=== PATIENT | female | born 1970 | race African-American/Black ===

== ENCOUNTER 2017-09-27 20:47 | Emergency (ER) | payer MEDICAID, OTHER ==
[~2017-09-27] VITALS: Ht 152.4 cm; Wt 100.0 kg
[~2017-09-27 20:47] MED LIST: HYDR25TA PO; IBUP-2030 PO; SERT25TA74 PO
[2017-09-28 00:45] VITALS: BP 131/88
== END 2017-09-28 00:53 | disposition home or self-care (01) ==
LOC: ER 21:44
DX: S80.02XA Contusion of left knee, initial encounter (principal); S80.01XA Contusion of right knee, initial encounter; S60.219A Contusion of unspecified wrist, initial encounter; R03.0 Elevated blood-pressure reading, without diagnosis of hypertension; W01.0XXA Fall on same level from slipping, tripping and stumbling without subsequent striking against object, initial encounter; Y93.01 Activity, walking, marching and hiking; Y92.480 Sidewalk as the place of occurrence of the external cause; Z88.2 Allergy status to sulfonamides; G40.909 Epilepsy, unspecified, not intractable, without status epilepticus
CPT/HCPCS: 99283; Z7610